=== PATIENT | female | born 1960 | race Caucasian/White ===

== ENCOUNTER 2022-02-06 20:18 | Emergency (ER) | payer BC, OTHER ==
[~2022-02-06] VITALS: Ht 160 cm; Wt 77.1 kg
--- NOTE | 2022-02-06 20:35 | NUR ---
Dr. Alvarado at bedside for MSE
[2022-02-06 21:00] LABS: HEMATOCRIT 37.4 % (31.2-41.9); MEAN CORPUSCULAR HEMOGLOBIN 30.2 uug (24.7-32.8); MEAN CORPUSCULAR VOLUME 89.9 fL (75.5-95.3); PLATELET COUNT (AUTO) 174 K/uL (179-408)
[2022-02-06] MEDS ORDERED: ACETAMINOPHEN ES 500 MG TABLET PO ONE (21:00)
[2022-02-06] MEDS ORDERED: CEFTRIAXONE 1 G VIAL IM ONE (21:00)
[2022-02-06 21:15] LABS: BILIRUBIN,TOTAL 0.2 mg/dL (0.2-1.0); CREATININE 0.8 mg/dL (0.6-1.3); POTASSIUM 3.8 mmol/L (3.5-5.1); TOTAL PROTEIN, SERUM 7.2 g/dL (6.4-8.2)
[2022-02-06] MEDS ORDERED: ONDANSETRON ODT 4 MG TAB.RAPDIS SL ONE (21:15)
[2022-02-06] MEDS ORDERED: ACETAMINOPHEN ES 500 MG TABLET ONE (21:22)
[2022-02-06] MEDS ORDERED: CEFTRIAXONE 1 G VIAL ONE (21:22)
[2022-02-06] MEDS ORDERED: ONDANSETRON ODT 4 MG TAB.RAPDIS ONE (21:22)
[2022-02-06] MEDS ORDERED: LIDOCAINE HCL 1% 20 ML VIAL ONE (21:27)
[2022-02-06] MEDS ORDERED: CEPH500T PO (22:16)
[2022-02-06] MEDS ORDERED: ONDA4TAB5 PO (22:16)
--- NOTE | 2022-02-06 22:30 | NUR ---
Patient discharged to home in stable condition. Written and verbal after care instructions given. Patient verbalizes understanding of instructions. All extremities WNL. Able to ambulate without assitance. Stressed follow up or return to ER for worsening s/s.
[2022-02-06 23:07] VITALS: BP 120/78
== END 2022-02-06 23:08 | disposition home or self-care (01) ==
LOC: ER 20:18
DX: R23.8 Other skin changes (principal); R50.9 Fever, unspecified; Z20.822 Contact with and (suspected) exposure to COVID-19; C50.912 Malignant neoplasm of unspecified site of left female breast; Z79.899 Other long term (current) drug therapy; Z90.12 Acquired absence of left breast and nipple; Z28.310 Unvaccinated for COVID-19; Z88.0 Allergy status to penicillin; Z88.2 Allergy status to sulfonamides; R11.0 Nausea
CPT/HCPCS: 10160; 36415; 71045; 80053; 85025; 87040 ×2; 87070; 87400; 87426; 96372; 99284; J0696; J3490; A4663; A9150; Q0162